=== PATIENT | female | born 1995 | race African-American/Black ===

== ENCOUNTER → 2023-08-25 14:13 | Outpatient (CLI) | payer OTHER, MEDICAID, SELFPAY | PROVIDERS: PCP Family Medicine; Visit Provider Obstetrics & Gynecology | DX: Z34.80 Encounter for supervision of other normal pregnancy, unspecified trimester (principal) | CPT/HCPCS: 87086 ==

== ENCOUNTER → 2023-10-28 10:06 | Outpatient (CLI) | payer OTHER, MEDICAID, SELFPAY ==
[2023-10-28 12:37] LABS: Urine N gonorrhoeae NOT DETECTED
[2023-10-28 13:20] LABS: Urine Chlamydia NOT DETECTED
== END ==
PROVIDERS: PCP Family Medicine; Visit Provider Obstetrics & Gynecology
DX: O99.210 Obesity complicating pregnancy, unspecified trimester (principal); Z3A.18 18 weeks gestation of pregnancy
CPT/HCPCS: 87491; 87591

== ENCOUNTER → 2023-10-28 10:22 | Outpatient (CLI) | payer OTHER, MEDICAID, SELFPAY | PROVIDERS: PCP Family Medicine; Referring Provider Obstetrics & Gynecology; Visit Provider Obstetrics & Gynecology | DX: O99.212 Obesity complicating pregnancy, second trimester (principal); Z3A.18 18 weeks gestation of pregnancy | CPT/HCPCS: 36415; 83036; 86592; 87491; 87591 ==

== ENCOUNTER → 2023-11-11 07:30 | Outpatient (CLI) | payer OTHER, MEDICAID, SELFPAY ==
--- NOTE | 2023-11-11 07:32 | DI.US.S_ITS ---
PROCEDURE: US OB >= 14 WEEKS FETUS INDICATIONS: anatomy scan OUTSIDE/PRIOR DATING DATA: Last menstrual period (LMP): 06/24/2023. LMP-based estimated date of delivery (JOVANA): 03/30/2024. First dating scan (date and location): Unknown. Estimated date of delivery (JOVANA) from first dating scan: 03/22/2024. The calculations are made using the ultrasound JOVANA of 03/22/2024. TECHNIQUE: Real-time scanning was performed of the fetus, with image documentation and biometric measurements. COMPARISON: None. FINDINGS: General: A single living intrauterine gestation is present. Presentation: Random Placenta: Placental position is anterior , without previa. Amniotic fluid index: 16.2 cm, normal range is 5-24 cm. Single deepest vertical pocket is 6.6 cm. heart rate: 139 beats per minute. Maternal cervical canal: 3.8 cm long. Normal lower limit is 2.5 cm. biometrics: Biparietal diameter: 4.9 cm 20 weeks 6 days Head circumference: 18.7 cm 21 weeks 0 days Abdominal circumference: 15.9 cm 21 weeks 0 days Femur length: 3.7 cm 21 weeks 5 days Clinically estimated gestational age: 20 weeks 0 days Composite gestational age from present scan: 21 weeks 1 day Estimated weight and percentile: 97th percentile Anatomic survey: Neuro: Ventricles are non-dilated at less than 10 mm. Cisterna magna is normal at 3-11 mm. Cerebellum is normal in size and morphology. Nuchal skin fold: Not well evaluated Face: Nose and lips, facial profile are normal. Spine: No evidence for spina bifida. Heart: 4-chambered heart is present, with normal ventricular outflow tracts. Diaphragm: Diaphragm is intact. Stomach: Left-sided stomach is present. Kidneys: No hydronephrosis. Normal is less than 5 mm in 2nd trimester, less than 7 mm in 3rd trimester. Cord: 3-vessel cord has orthotopic insertion. Bladder: Normal in size. Extremities: All 4 extremities identified. IMPRESSION: Single live intrauterine with gestational age today of 21 weeks 1 day. Anatomy is within normal limits. growth is at the 97th percentile. We strive to produce accurate, complete, and clear reports of imaging services. To assist us in improving patient care, this report was composed using standard report templates and voice recognition software. Therefore, it may contain abnormal punctuation, insertions and/or omissions. Occasional wrong-word or sound-alike substitutions may occur. Though we review the report and make efforts to correct it, we do recommend that the report be read carefully in proper context to recognize any text inaccuracies. Dictated by: Rita Tyler M.D. on 11/11/2023 at 10:21 Approved by: Rita Tyler M.D. on 11/11/2023 at 10:23
== END ==
LOC: US 07:32
PROVIDERS: PCP Family Medicine; Referring Provider Obstetrics & Gynecology; Visit Provider Obstetrics & Gynecology
DX: Z34.02 Encounter for supervision of normal first pregnancy, second trimester (principal); Z3A.21 21 weeks gestation of pregnancy
CPT/HCPCS: 76811

== ENCOUNTER → 2024-01-27 09:03 | Outpatient (CLI) | payer OTHER, MEDICAID, SELFPAY ==
--- NOTE | 2024-01-27 09:03 | DI.US.S_ITS ---
PROCEDURE: US OB LIMITED INDICATIONS: interval growth OUTSIDE/PRIOR DATING DATA: Last menstrual period (LMP): 06/24/2023. LMP-based estimated date of delivery (JOVANA): 03/30/2024. First dating scan (date and location): Not reported. Estimated date of delivery (JOVANA) from first dating scan: 03/22/2024 The calculations are made using the ultrasound JOVANA of 03/30/2024. TECHNIQUE: Real-time scanning was performed of the fetus, with image documentation and biometric measurements. Endovaginal scanning: Not performed COMPARISON: None. FINDINGS: General: A single living intrauterine gestation is present. Presentation: Vertex. Placenta: Placental position is anterior , without previa. Amniotic fluid index: 18.6 cm, normal range is 5-24 cm. Single deepest vertical pocket is 7.2 cm. heart rate: 118 beats per minute. Maternal cervical canal: 3.8 cm long. Normal lower limit is 2.5 cm. biometrics: Biparietal diameter: 7.9 cm, 31 weeks 6 days Head circumference: 29.5 cm, 32 weeks 4 days Abdominal circumference: 28.3 cm, 32 weeks 3 days Femur length: 6.3 cm, 32 weeks 3 days Clinically estimated gestational age: 31 weeks 0 days Composite gestational age from present scan: 32 weeks 2 days Estimated weight and percentile: 1955 g, 82 percentile Other: Not applicable. IMPRESSION: Single living intrauterine at 31 weeks 0 days, JOVANA of 03/30/2024. Estimated weight 1955 g, 82 percentile. We strive to produce accurate, complete, and clear reports of imaging services. To assist us in improving patient care, this report was composed using standard report templates and voice recognition software. Therefore, it may contain abnormal punctuation, insertions and/or omissions. Occasional wrong-word or sound-alike substitutions may occur. Though we review the report and make efforts to correct it, we do recommend that the report be read carefully in proper context to recognize any text inaccuracies. Dictated by: Jean Claude Domingo M.D. on 01/27/2024 at 12:02 Approved by: Jean Claude Domingo M.D. on 01/27/2024 at 12:08
== END ==
PROVIDERS: PCP Family Medicine; Referring Provider Obstetrics & Gynecology; Visit Provider Obstetrics & Gynecology
DX: Z34.93 Encounter for supervision of normal pregnancy, unspecified, third trimester (principal); Z3A.31 31 weeks gestation of pregnancy
CPT/HCPCS: 76815

== ENCOUNTER → 2024-03-05 15:26 | Outpatient (CLI) | payer OTHER, MEDICAID, SELFPAY ==
[2024-03-06 14:50] LABS: Strep Grp B PCR NEG for Grp B Strep
== END ==
PROVIDERS: PCP Family Medicine; Referring Provider Obstetrics & Gynecology; Visit Provider Obstetrics & Gynecology
DX: Z34.93 Encounter for supervision of normal pregnancy, unspecified, third trimester (principal); Z3A.36 36 weeks gestation of pregnancy
CPT/HCPCS: 87653

== ENCOUNTER 2024-03-19 10:09 | Outpatient (CLI) | payer OTHER, MEDICAID, SELFPAY ==
[2024-03-19 10:46] LABS: Add Manual Diff / Slide Review NO; Basophils Absolute Auto 0 /uL (0-100); Basophils Percent Auto 0.4 % (0-2); Eosinophils Absolute Auto 100 /uL (0-450); Eosinophils Percent Auto 0.8 % (2-4); Hematocrit 33.4 % (36-46); Hemoglobin 11.3 g/dL (12.0-16.0); Lymphocytes Absolute Auto 1500 /uL (1100-4500); Lymphocytes Percent Auto 17.5 % (25-40); Mean Corpuscular HGB Conc 33.8 % (30-36); Mean Corpuscular Hemoglobin 29.9 PG (26-34); Mean Corpuscular Volume 88.7 fL (80-100); Monocytes Absolute Auto 300 /uL (0-900); Monocytes Percent Auto 3.5 % (3-14); Neutrophils Absolute Auto 6600 /uL (1500-7000); Neutrophils Percent Auto 77.8 % (50-75); Platelet Count 187 X10^3/uL (150-400); Red Blood Cell Count 3.77 X10^6/uL (4.0-5.2); Red Cell Distribution Width 14.9 % (11.6-14.8); White Blood Cell Count 8.5 X10^3/uL (4.5-11.0)
[2024-03-19 10:59] LABS: Alanine Aminotransferase 12 IU/L (<35); Albumin 3.6 g/dL (3.5-5.0); Albumin Globulin Ratio 1.3 (1.0-2.8); Alkaline Phosphatase 106 U/L (38-126); Aspartate Aminotransferase 17 IU/L (14-36); BUN Creatinine Ratio 12.9 (6-22); Bilirubin Total 0.5 mg/dL (0.2-1.3); Blood Urea Nitrogen 8 mg/dL (7-17); Carbon Dioxide 22 mmol/L (22-32); Chloride 106 mmol/L (98-107); Estimated Glomerular Filt Rate > 60 mL/min (>60); Globulin 2.8 g/dL (1.7-4.1); Glucose 135 mg/dL (70-100); HEMOLYSIS < 15 (0-50); Potassium 4.1 mmol/L (3.4-5.1); Sodium 134 mmol/L (137-145); Total Protein 6.4 g/dL (6.3-8.2); Uric Acid 5.1 mg/dL (2.5-6.2)
[2024-03-19 11:27] LABS: Creatinine Urine Random 101.21 mg/dL; Protein (Total) Urine Random 6 mg/dL (0-12); Protein Creatinine Ratio Urine 0.05 GRAM/24H
== END 2024-03-19 10:55 | disposition home or self-care (01) ==
LOC: LABOR 10:36 → OB 03-22 11:16
PROVIDERS: PCP Family Medicine; Referring Provider Obstetrics & Gynecology; Visit Provider Obstetrics & Gynecology
DX: Z34.83 Encounter for supervision of other normal pregnancy, third trimester (principal); Z3A.38 38 weeks gestation of pregnancy
CPT/HCPCS: 36415; 59025; 80053; 84550; 85025; G0378; G0379

== ENCOUNTER 2024-03-26 08:30 | Inpatient (IN) | payer OTHER, MEDICAID, SELFPAY ==
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
--- NOTE | 2024-03-26 09:34 | PM.PREOP ---
Pre-operative Note Interval Note History & Physical reviewed/Exam performed by Physician: Yes Changes to H&P: No H&P completed within 30 days and has changed as indicated here:: 03/26/24 ASA Class (for procedural sedation): III
[2024-03-26] MEDS: CITRIC ACID/SODIUM CITRATE 15 ML SOLUTION 30 ML PO (09:39)
[2024-03-26 09:53] VITALS: BP 127/70
[2024-03-26 11:10] LABS: Add Manual Diff / Slide Review NO; Basophils Absolute Auto 100 /uL (0-100); Basophils Percent Auto 0.5 % (0-2); Eosinophils Absolute Auto 100 /uL (0-450); Eosinophils Percent Auto 0.9 % (2-4); Hematocrit 36.1 % (36-46); Hemoglobin 12.1 g/dL (12.0-16.0); Lymphocytes Absolute Auto 2400 /uL (1100-4500); Lymphocytes Percent Auto 21.4 % (25-40); Mean Corpuscular HGB Conc 33.5 % (30-36); Mean Corpuscular Hemoglobin 29.4 PG (26-34); Mean Corpuscular Volume 87.9 fL (80-100); Monocytes Absolute Auto 600 /uL (0-900); Monocytes Percent Auto 5.2 % (3-14); Neutrophils Absolute Auto 8100 /uL (1500-7000); Platelet Count 210 X10^3/uL (150-400); Red Blood Cell Count 4.11 X10^6/uL (4.0-5.2); Red Cell Distribution Width 15.3 % (11.6-14.8); White Blood Cell Count 11.2 X10^3/uL (4.5-11.0)
[2024-03-26 11:12] VITALS: BP 127/70; PULSE 107; RESP 18
[2024-03-26] MEDS: ACETAMINOPHEN IV 1,000 MG/100 ML VIAL 400 MG IV (11:26)
[2024-03-26] MEDS: LACTATED RINGERS 1,000 ML 999 ML IV (11:26)
--- NOTE | 2024-03-26 11:52 | SUR.OPER ---
Supine on Padded OR bed, head on pillow, safety belt at thigh, arms secured on padded arm boards at <90 degrees abduction. Bump under right buttock. Legs uncrossed with pillow under knees, gel pad to heels, tape over blanket to lower legs.
[2024-03-26] MEDS: CEFAZOLIN VIAL 1 GM in SODIUM CHLORIDE 0.9% 100 ML IV (12:04)
[2024-03-26] MEDS: CEFAZOLIN 2 GM/100 ML PREMIX 100 ML IV (12:04)
--- NOTE | 2024-03-26 12:22 | SUR.OPER ---
FHT PRE INCISION 150. VIABLE BABY DELIVERED AT 1230, CLEAR FLUID
[2024-03-26] MEDS: TRANEXAMIC ACID 1,000 MG in SODIUM CHLORIDE 0.9% 100 ML 200 MG IV (12:32)
[2024-03-26] MEDS: OXYTOCIN PREMIX 30 UNIT/500 ML PLAST..BAG 200 UNIT IV (12:33)
[2024-03-26 13:30] VITALS: BP 106/47; PULSE 80; RESP 16; TEMP 36.4; O2SAT 100
[2024-03-26 13:40] VITALS: BP 113/65; PULSE 80; RESP 16; O2SAT 98
--- NOTE | 2024-03-26 13:41 | PM.OP.1 ---
Operative Date/Time/Diagnoses Date of procedure: 03/26/24 Time of procedure: 12:00 Pre-op diagnosis: 1) IUP at 39w3d; 2) h/o prior CS with indication for repeat Post-op diagnosis: same Procedure & Clinicians Procedure: repeat low transverse section Same procedure as scheduled: Yes Indications: h/o prior , desired repeat Surgeon: Evette Gray Certified Family Mediator: Erik Felipe Click Yes if Unassisted: No Anesthesia Type: Spinal Operative Notes Findings: obese pannus with approx 10cm suprafascial subcutaenous tissue at level of incision Omentum with noted adhesion to anterior abdominal wall limiting abdominal survey grossly normal appearing uterus, bilateral adenxae very thin MANISHA, would recommend patient NEVER LABOR in future pregnancies Closure Type: primary Specimen(s): none sent Estimated Blood Loss (mL): 800 Blood products transfused: none Procedure in detail: Pt was taken to the operating room and transferred to OR table.? The spinal was placed per anesthesia.? The patient was placed in the supine position, prepped and draped in a sterile fashion.? Prior to incision the level of anesthesia was rechecked and found to be adequate.? A timeout was once again performed. A pfannensteil incision was made 2cm superior to the pubic symphysis in line with prior scar.? This incision was carried down sharply to the level of the rectus fascia with noted minimal scar from prior procedure.? The fascia was incised sharply with knife and the incision was extended bilaterally and superiorly using de leon scissors. The superior border of the fascia was elevated with two Toyin clamps and bluntly dissected off of the rectus muscles followed by incision of the median raphe with the scalpel.? Attention was then turned to the inferior border of the fascia which was dissected away from the underlying musculature in a similar manner down to the level of the pubic symphysis.? The rectus muscles were then in the midline and the peritoneum was identified.? The peritoneum was entered bluntly under direct visualization.? The peritoneal opening was then extended manually.? The flame brazing machine operator?s hand was inserted in the abdomen and the uterus was found to be in a non-rotated position. A large Kenn retractor was placed for further assistance with visualization. The vesicouterine peritoneum was identified, elevated using DeBakey forceps and incised in the midline using Metzenbaum scissors.? The incision was carried laterally and superiorly bilaterally.? A bladder flap was further developed digitally with noted dense adhesion to the lower uterine segment. Next, a low transverse incision was made in the uterus using the knife.? The incision was extended laterally and superiorly bilaterally bluntly.? The flame brazing machine operator?s hand was then inserted into the uterus to find an in the vertex OT position.? Then infant?s vertex was grasped, flexed and brought to the incision; vacuum applied and suction increased to top of green zone, and under gentle traction in tandem with fundal pressure the infant was delivered atraumatically.? The cord was doubly clamped and cut following 60s of delayed cord clamping.? The infant was then passed to waiting pediatricians.? Cord blood collected and passed off the field. The placenta was delivered via gentle traction and then passed off the field.? The uterus was unable to be exteriorized secondary to patient habitus. The uterine cavity was wiped of all clots and debris with a moistened sponge.? The hysterotomy incision was repaired with #0 vicryl in a running locked fashion, followed by a second #0 vicryl in an imbricating fashion.? Tubes, ovaries and adnexae were visualized and noted to be grossly normal in appearance.? The Kenn retractor was removed without difficulty and the hysterotomy was noted to be hemostatic off of tension. Perclot was placed along the denuded lower uterine segment for further hemostasis prophylaxis.? The rectus fascia was closed using 2 #1 vicryl in a running fashion.? The incision was irrigated and hemostasis was achieved using the bovie.? The subcutaneous space was reapproximated using plain gut suture in a running fashion in 2 layers.? The skin was closed using 4-0 monocryl followed by application of PAM dressing.? All counts were correct x2.? The pt tolerated the procedure well and without difficulty. Fundal contents were expressed and fundus noted to be firm, level noted prior to patient transfer to PACU in stable condition.? Complications: none Post-operative Condition: stable Disposition: PACU Plan for aftercare: routine postop/postopartum care plan prophylactic LMWH x2wks starting in AM seconadry to BMI >45
[2024-03-26] MEDS: KETOROLAC 30 MG/ML VIAL IV ×2 (13:42→19:45)
[2024-03-26] MEDS: RHO(D) IMMUNE GLOBULIN 1,500 UNIT SYRINGE 1500 UNIT IM (19:50)
[2024-03-27] MEDS: ACETAMINOPHEN 325 MG TABLET 650 MG PO ×2 (01:25→07:27)
[2024-03-27] MEDS: IBUPROFEN 600 MG TABLET PO ×2 (02:26→10:00)
[2024-03-27] MEDS: OXYCODONE IR 5 MG TABLET PO ×2 (05:57→11:14)
[2024-03-27 05:58] LABS: Hematocrit 33.7 % (36-46); Hemoglobin 11.4 g/dL (12.0-16.0)
--- NOTE | 2024-03-27 08:51 | PM.OBDS.1 ---
Discharge Providers Provider Date of admission: 03/26/24 08:30 Discharge Date: 03/27/24 Primary care physician: Thomas Gale DO Consults: 03/26/24 13:48 Consult to Professor Of Engineering Routine Comment: Discharge provider: Allyson Duke MD Summary Hospital Course Date Patient Seen: 03/27/24 Time Patient Seen: 08:51 Hospital Course: 29yo at 39w3d who was admitted for scheduled rLTCS. has been complicated by maternal obesity, excessive weight gain in (43lbs) and hx of prior wtih low titer (1:2) at onset of this . was otherwise uncomplicated. CS was uncomplicated aside from a thin lower uterine segment which prompted the recommendation to not labor in future pregnancies. PAM dressing is in place. Post- course was uncomplicated. Bleeding was well controlled. She is breast feeding without difficulty. On Post-op day 1 pain is well controlled on oral medications. She is voiding and passing gas without difficulty Peripartum Data Infant Delivery Method: Section complications: none Status at Discharge Cognitive/behavioral status at discharge: oriented Functional status at discharge: independent ambulation Time Spent with Patient Time attestation: Total time spent providing and/or coordinating discharge services: Time spent: Greater than 30 minutes Objective Labs 03/27/24 05:49 Labs: Laboratory Results - last 24 hr 03/26/24 03/27/24 09:10 05:49 WBC 11.2 H RBC 4.11 Hgb 12.1 11.4 L Hct 36.1 33.7 L MCV 87.9 MCH 29.4 MCHC 33.5 RDW 15.3 H Plt Count 210 Neut % (Auto) 72.0 Lymph % (Auto) 21.4 L [place] % (Auto) 5.2 Eos % (Auto) 0.9 L Baso % (Auto) 0.5 Neut # (Auto) 8100 H Lymph # (Auto) 2400 [place] # (Auto) 600 Eos # (Auto) 100 Baso # (Auto) 100 Blood Type O Negative Antibody Screen Negative Maternal Bleed Negative Exam Vital Signs (past 8 hours): Oxygen Delivery Method Room Air Discharge Plan Discharge Plan Patient Disposition: Home Provider Discharge Comment: Call with fever, chills, redness or drainage around the incision, or bleeding vaginally more than a pad in an hour Ibuprofen 600 mg every 6 hours for the first week, and then every 6 hours as needed Tylenol 650 mg every 6 hours Oxycodone as needed Stool softener as needed Discharge orders & Medications Prescriptions: New enoxaparin [Lovenox] 40 mg/0.4 mL syringe 40 mg SUBCUT DAILY Qty: 4 0RF ibuprofen 600 mg tablet 600 mg PO Q6H PRN (Reason: pain) Qty: 30 2RF docusate sodium [Colace] 100 mg capsule 100 mg PO DAILY Qty: 30 0RF oxycodone 5 mg tablet 5 mg PO Q4H PRN (Reason: pain) Qty: 14 0RF Continued PNV cmb#95-ferrous fumarate-FA [ Multivitamins] 28 mg iron- 800 mcg tablet 1 tab PO DAILY loratadine [Claritin] 10 mg tablet 10 mg PO DAILY Qty: 90 3RF Discontinued ferrous sulfate 325 mg (65 mg iron) tablet,delayed release (DR/EC) 325 mg PO BID Qty: 90 2RF hydrocortisone [Aquaphor Itch Relief] 1 % ointment 1 applic topical BID Qty: 28.35 3RF Follow up/Referrals: Evette Gray MD [Physician] - (Our office will call patient on Friday to schedule dressing removal next Friday) Diet/Activity/Treatments Diet: Regular Activity: No heavy lifting Nothing in the vagina until after 6 week visit Skin/Wound/Dressing Care Report to your healthcare provider any signs of infection, such as:: chills, fever, increased pain, unusual drainage and unusual redness Dressing: Do not remove Visit Report/Discharge Packet Instructions: DI for , DI for Prescription Opioid Use Stand Alone Forms: Discharge: Care, Patient Portal/API, Stroke Signs & Symptoms Discharge Data Primary Care Provider: Thomas Gale Discharges patient from system. Discharge Date/Time: 03/27/24 11:30
[2024-03-27] MEDS: PRENATAL VIT,CALC/IRON/FOLIC 1 TABLET 1 TAB PO (10:00)
[2024-03-27] MEDS: ENOXAPARIN 40 MG/0.4 ML SYRINGE SUBCUT (10:01)
[2024-03-27 11:44] VITALS: BP 127/71; PULSE 100; RESP 16; TEMP 37.2
== END 2024-03-27 11:30 | disposition home or self-care (01) | DRG 540 ==
PROVIDERS: Admitting Provider Obstetrics & Gynecology; PCP Family Medicine; Referring Provider Obstetrics & Gynecology; Visit Provider Obstetrics & Gynecology
PROC: 10D00Z1 Extraction of Products of Conception, Low, Open Approach (ICD-10-PCS; CPT 59514; principal; 2024-03-26 10:45)
DX: O34.211 Maternal care for low transverse scar from previous cesarean delivery (principal); O99.892 Other specified diseases and conditions complicating childbirth; N73.6 Female pelvic peritoneal adhesions (postinfective); O99.214 Obesity complicating childbirth; E66.01 Morbid (severe) obesity due to excess calories; Z3A.39 39 weeks gestation of pregnancy; Z37.0 Single live birth
CPT/HCPCS: 36415; 59025; 59050; 59514; 85014; 85018; 85025; 85461; 86850; 86900; 86901; J0134; J0690; J1100; J1650; J1885; J2274; J2405; J2590; J2790; J3010

== ENCOUNTER → 2024-12-07 10:51 | Outpatient (CLI) | payer OTHER, SELFPAY ==
[2024-12-09 12:40] LABS: Trichomoas vaginalis Negative (Negative)
== END ==
PROVIDERS: PCP Family Medicine; Visit Provider Student in an Organized Health Care Education/Training Program
DX: N89.8 Other specified noninflammatory disorders of vagina (principal)
CPT/HCPCS: 87480; 87510; 87660